=== PATIENT | female | born 1995 | race Caucasian/White ===

== ENCOUNTER 2018-03-05 19:05 | Emergency (ER) | payer MEDICAID, SELFPAY ==
[2018-03-05 19:06] VITALS: BP 137/100; PULSE 130; RESP 22; TEMP 37.1; O2SAT 97; BMI 43.2
[2018-03-05 19:39] LABS: Absolute Lymphocyte Count 1.68 X10^3/ul (0.83-4.51); Absolute Neutrophil Count 17.8 X10^3/uL (2.0-7.7); Bacteria 0 SEEN /hpf (None Seen); Basophil# 0.04 X10^3/uL; Basophil% 0.2 % (0-1); Eosinophil# 0.08 X10^3/uL; Eosinophils% 0.4 % (0-5); Hematocrit 37.7 % (37-47); Hemoglobin 12.4 g/dl (12.0-15.0); Lymphocyte # 1.68 X10^3/ul (4.0); Lymphocyte % 8.2 % (19-41); Mean Corp Hgb Conc 32.9 g/gl (32-36); Mean Corpuscular Hgb 24.2 pg (27.0-32.0); Mean Corpuscular Volume 73.5 fL (81-99); Mean Platelet Vol. 9.5 fl (6.2-12.0); Monocyte# 0.76 X10^3/uL; Monocyte% 3.7 % (0-10); Mucous, Urine 0 SEEN /hpf (<or=2+); Neutrophil # 17.76 X10^3/uL (2.7-7.7); Neutrophil % 87.1 % (47-70); Platelet Count 354 K/mm3 (150-450); RBC Distribution Width CV 15.6 % (11.6-14.6); RBC Distribution Width SD 41.1 fl (35.1-43.9); Red Blood Cells-Urine 0 SEEN /hpf (0-5); Red Blood Count 5.13 M/mm3 (4.2-5.4); White Blood Count 20.4 K/mm3 (4.4-11.0)
[2018-03-05 19:42] LABS: POSITIVE COUNT NO; POSITIVE DIFFERENTIAL NO; POSITIVE MORPHOLOGY NO
[2018-03-05 19:48] LABS: Color, Urine Yellow (Yellow); Glucose, Dipstick Normal (Normal); Ketone-Dipstick 50 mg/dl (Negative); Leukocyte Esterase-Dipstick 100 /ul (Negative); Nitrite-Dipstick Negative (Negative); Occult Blood-Urine Negative /ul (Negative); Protein-Dipstick Negative (Negative); Urine Bilirubin Dipstick Negative (Negative); Urine Clarity Clear (Clear); Urine Urobilinogen Normal (Normal)
[2018-03-05 19:58] LABS: Anion Gap 12 (5-15); BUN 11 mg/dL (7-18); BUN/Creat Ratio 12.8 RATIO (10-20); Calcium,Total 9.4 mg/dL (8.5-10.1); Chloride 102 mmol/L (98-107); Creatinine, Serum 0.86 mg/dL (0.55-1.02); EST Glomerular Filtration Rate 87 mL/min (>60); Est Glom Filt Rate - Afr Amer 105 mL/min (>60); Estimated Creatinine Clearance 91.55 ml/min; Glucose 108 mg/dL (74-106); Potassium 3.9 mmol/L (3.5-5.1); Sodium Level 135 mmol/L (136-145)
[2018-03-05 19:59] LABS: Squamous Epithelial Cells - UA 0-5 SEEN /hpf (5-10); White Blood Cells 0-5 SEEN /hpf (0-5)
[2018-03-05 20:15] VITALS: BP 142/73; PULSE 107; RESP 16; O2SAT 94
[2018-03-05 20:15] LABS: Pregnancy, Serum, hCG Quali. NEGATIVE Negative (0-9 Nonpreg)
[2018-03-05] MEDS: Ondansetron 4 MG/2 ML Vial IV (20:37)
--- NOTE | 2018-03-05 20:56 | ED.VISSUMM ---
- ER Visit Summary Date of Service: 03/05/18 Chief Complaint: Nausea and vomiting with fever, headache and abdominal pain. History of Present Illness: The patient is a 23 F past medical history of prior anemia and left lower quadrant hernia repair. States today she has had fever of [id number] with intermittent nausea and vomiting. No diarrhea. No dysuria. Mild cramping left lower quadrant intermittently. This is where she had a prior hernia repair. She has had a prior appendectomy. He denies other abdominal surgeries. Physical Examination: Young female no acute distress vital signs are stable afebrile. Temperature 98.8. Does not look septic or toxic. Does not look dehydrated. H EENT exam TMs normal. Posterior pharynx normal. Moist wheeze members. Neck nontender. No lymphadenopathy. No meningismus. Lungs clear to auscultation bilaterally. Heart regular rhythm rate about. Abdomen soft nondistended normal bowel sounds no peritoneal signs. Both the right upper right lower quadrants completely nontender. She is minimal tenderness in her prior left lower quadrant hernia repair site. This appears to be superficial. Nondistended. No signs of obstruction. Positive bowel sounds. She is moving all 4 extremities. The neurovascular intact. Back nontender. Skin no rashes. No petechiae or purpura. Neurologically she is awake alert with no focal motor deficits. Test Results: Patient's white count is elevated 20,000 however I think is from her nausea and vomiting. H&H 12 and 37. No bands. Electrolytes are unremarkable normal BUN, creatinine and gap. UA normal. Serum test negative. Emergency Department Course and Treatment: Patient treated with 1 L normal saline. IV Zofran. She will be reassessed. Clinically I think is a viral syndrome. I do not think she is acute abdomen. I also do not feel this is meningitis. Treatment Plan: Multiple repeat exams patient is doing well. At 2315 she feels fine. Her abdomen is completely nontender. There is no peritoneal signs. She feels comfortable being discharged home. Zofran home pack. Return if feeling worse. Disposition: Discharge Impression: Acute viral syndrome with nausea and vomiting. Abdominal pain This note was generated with [employer] dictation software. It may contain incorrect words, spelling, and punctuation that were not noted in review of the chart prior to signing ED Disposition - Plan for ED Patient: Chief Complaint: Abd Pain Referrals: Mahnaz Ramos, FAMILY AND CONSUMER SCIENCE PROFESSOR-C [Primary Care Provider] -
[2018-03-05] MEDS: Acetaminophen 500 MG Tablet 1000 MG PO (21:31)
[2018-03-05 22:07] VITALS: BP 115/72; PULSE 95; RESP 16; O2SAT 97
[2018-03-05 23:05] VITALS: BP 112/57; PULSE 88; RESP 16; O2SAT 97
--- NOTE | 2018-03-05 23:15 | ED.DEP ---
ED Disposition - Plan for ED Patient: Disposition: Home or Assisted Living Chief Complaint: Abd Pain Instructions: ED Viral Syndrome, ED Nausea Vomiting Prescriptions: Ondansetron [Zofran Odt] 4 mg PO Q4H PRN PRN #7 tab.rapdis PRN Reason: Nausea Referrals: Mahnaz Ramos, CABLE INSTALLATION MANAGER-C [Primary Care Provider] - 1-2 Days if not improving Additional Instructions: Plenty of fluids and rest. Zofran as needed for nausea.
--- NOTE | 2018-03-05 23:18 | DCINST.ED_ITS ---
ED Disposition - Plan for ED Patient: Disposition: Home or Assisted Living Chief Complaint: Abd Pain Instructions: ED Viral Syndrome, ED Nausea Vomiting Prescriptions: Ondansetron [Zofran Odt] 4 mg PO Q4H PRN PRN #7 tab.rapdis PRN Reason: Nausea Referrals: Mahnaz Ramos, OBSTETRICIAN GYNECOLOGIST-C [Primary Care Provider] - 1-2 Days if not improving Additional Instructions: Plenty of fluids and rest. Zofran as needed for nausea.
[2018-03-05] MEDS: Ondansetron ODT 4 MG Tablet PO (23:33)
[2018-03-05 23:36] VITALS: BP 112/57; PULSE 88; RESP 16; O2SAT 97
== END 2018-03-05 23:36 | disposition home or self-care (01) ==
PROVIDERS: Emergency Provider Emergency Medicine; Family Provider Nurse Practitioner Adult Health; PCP Nurse Practitioner Adult Health
DX: B34.9 Viral infection, unspecified (principal); R11.2 Nausea with vomiting, unspecified; R10.32 Left lower quadrant pain; R50.9 Fever, unspecified; D64.9 Anemia, unspecified; Z79.899 Other long term (current) drug therapy; Z87.891 Personal history of nicotine dependence
CPT/HCPCS: 36415; 80048; 81001; 84703; 85025; 96374; 99284; J7030; A4216; J2405

== ENCOUNTER → 2018-11-19 17:08 | Outpatient (CLI) | payer MEDICAID, SELFPAY ==
[2018-11-19 16:20] VITALS: BMI 43.2
[2018-11-19 18:05] LABS: Glucose Challenge Gest 1H 50g 132 mg/dL (70-140)
[2018-11-19 18:19] LABS: Absolute Lymphocyte Count 1.94 X10^3/ul (0.83-4.51); Basophil# 0.04 X10^3/uL; Basophil% 0.5 % (0-1); Eosinophil# 0.21 X10^3/uL; Eosinophils% 2.4 % (0-5); Hematocrit 33.9 % (37-47); Lymphocyte # 1.94 X10^3/ul (4.0); Lymphocyte % 22.4 % (19-41); Mean Corp Hgb Conc 32.4 g/gl (32-36); Mean Corpuscular Hgb 24.8 pg (27.0-32.0); Mean Corpuscular Volume 76.5 fL (81-99); Mean Platelet Vol. 9.8 fl (6.2-12.0); Monocyte# 0.45 X10^3/uL; Monocyte% 5.2 % (0-10); Neutrophil % 69.2 % (47-70); Platelet Count 286 K/mm3 (150-450); RBC Distribution Width CV 15.5 % (11.6-14.6); RBC Distribution Width SD 42.2 fl (35.1-43.9); Red Blood Count 4.43 M/mm3 (4.2-5.4); White Blood Count 8.7 K/mm3 (4.4-11.0)
[2018-11-19 18:23] LABS: POSITIVE COUNT NO; POSITIVE DIFFERENTIAL NO; POSITIVE MORPHOLOGY NO
[2018-11-19 18:57] LABS: HIV - WCH Non-Reactive (Nonreactive); Rubella IgG 251.1 IU/mL
[2018-11-19 22:12] LABS: Chlamydia Trachomatis by PCR Negative (Negative); Neisserai gonorrhoeae by PCR Negative (Negative); Probe Check PASS; Sample Adequacy Control PASS; Specimen Processing Control PASS
[2018-11-22 02:05] LABS: Rapid Plasmin Reagin (RPR) NONREACTIVE (NONREACTIVE)
[2018-11-22 10:03] LABS: HEPATITIS B SURFACE AG Negative (Negative)
== END ==
PROVIDERS: Family Provider Nurse Practitioner Adult Health; PCP Nurse Practitioner Adult Health; Referring Provider Obstetrics & Gynecology; Visit Provider Obstetrics & Gynecology
DX: Z34.90 Encounter for supervision of normal pregnancy, unspecified, unspecified trimester (principal)
CPT/HCPCS: 36415; 82950; 85025; 86592; 86703; 86762; 86850; 86900; 87086; 87088; 87340; 87491; 87591

== ENCOUNTER 2019-01-06 15:18 | Emergency (ER) | payer MEDICAID, SELFPAY ==
[2018-12-20 15:34] VITALS: BMI 43.2
[2019-01-06 15:19] VITALS: BP 163/97; PULSE 112; RESP 18; TEMP 37.3; O2SAT 97; BMI 40.1
--- NOTE | 2019-01-06 15:28 | ED.RN ---
PT REPORTS CHEST TIGHTNESS AND NAUSEA. CALLED FOR EKG. WILL CONTINUE TO MONITOR.
--- NOTE | 2019-01-06 15:30 | EKG12_ITS ---
Test Reason : CHEST HEAVINESS Blood Pressure : / mmHG Vent. Rate : 108 BPM Atrial Rate : 108 BPM P-R Int : 114 ms QRS Dur : 092 ms QT Int : 350 ms P-R-T Axes : 053 054 014 degrees QTc Int : 469 ms Sinus tachycardia Otherwise normal ECG Confirmed by KEENAN BENAVIDEZ, ANKUR ([id number]), brands editor ZEHRA COHEN ([id number]) on 01/07/2019 1:43:22 PM Referred By: ABEBA/BLAISE Confirmed By:ANKUR HUSSEIN MD
--- NOTE | 2019-01-06 15:55 | ED.DCSUM_ITS ---
History of Present Illness Chief Complaint: Shortness of Breath Informant: Patient Onset: Today Timing: Continuous Quality: Wheezing Current Severity: Mild Maximum Severity: Moderate Narrative: Patient presenting for evaluation secondary to shortness of breath. Patient has an underlying history of asthma. She is also 14 weeks . She is G1, P0. Patient reports that today she started to have some issues with shortness of breath. She was very concerned about using her inhaler as her CLOTH NEUTRALIZER said she should not use it more than twice a week. She reports that she has chest tightness and shortness of breath. She does endorse a mild nonproductive cough, no fevers. Patient reports that she felt so anxious that she vomited a couple of times. She denies any pelvic cramping vaginal bleeding or discharge. Patient called her primary care office and they recommended that she come to the emergency department. Past Medical History - Allergies and Home Meds Allergies/Adverse Reactions: Allergies [place] And Derivatives Allergy (Verified 01/06/19 15:19) Swelling morphine Allergy (Verified 01/06/19 15:19) Other Primary Care Physician: Mahnaz Ramos NP-C [Primary Care Provider] - Smoking Status: Never smoker Review of Systems All systems negative except as indicated General: Denies: Fever Cardiovascular: Reports: Chest pain Respiratory: Reports: Dyspnea Gastrointestinal: Reports: Nausea, Vomiting Psych: Reports: Anxiety Physical Exam Vital Signs/Narrative: Vital Signs Temp Pulse Resp BP Pulse Ox 01/06/19 15:19 99.2 F H 112 H 18 163/97 H 97 General: Well nourished, Well developed, - - Patient is anxious and tearful Head: Normocephalic, Atraumatic Eyes: Perrl, EOMI ENT: Moist mucous membranes, No rhinorrhea Neck: Supple, Nontender Cardiovascular: Regular rhythm, Tachycardia, - - 2+ radial pulses bilaterally symmetric Respiratory: Wheezing - Minimal diffuse without evidence of respiratory distress retractions or accessory muscle use Abdomen: Soft, Nontender, Nondistended, Normal bowel sounds Back: Nontender, Normal Inspection Extremities: Nontender, No edema Skin: Normal color, No rash Neurological: Alert, Oriented x3, Cranial nerves II-XII grossly intact, Normal Strength, Normal Sensation Psychological: Normal affect, Normal Mood Diagnostic/Tx/Re-eval - EKG Initial EKG Interpretation: - - Sinus tachycardia with a rate of 108. Isoelectric ST segments. Isolated T wave inversion in lead III, no evidence of S1, q3, T3 morphology. No evidence of right ventricular strain. - Medical Decision Making Patient presented secondary to shortness of breath. Physical exam does show some evidence of obstructive lung disease with wheezing. Patient was given a breathing treatment in the emergency department had significant subsequent improvement. Patient's initial EKG did show mild amount of tachycardia but the patient was significantly anxious and tearful at that time, and my repeat evaluation even after the patient having a beta-rosamaria shows a normal sinus rhythm with no tachycardia. Patient has no signs or symptoms consistent with pulmonary embolus I do not believe the work-up is indicated. Patient was given a dose of Kenalog in the emergency department to help with pulmonary inflammation. Patient was recommended that she can use her inhaler every 4-6 hours as needed. Patient was comforted by this, and was discharged in improved condition. Disposition: Home ED Disposition - Plan for ED Patient: Disposition: Home or Assisted Living Diagnosis: Asthma exacerbation Instructions: ASTHMA, Acute (Adult) Referrals: Mahnaz Ramos NP-C [Primary Care Provider] - 5-7 Days
[2019-01-06] MEDS: Albuterol 2.5 MG/3 ML VIAL.NEB. INHALATION (15:58)
[2019-01-06 15:59] VITALS: PULSE 95; RESP 18; O2SAT 98
[2019-01-06] MEDS: Triamcinolone Acetonide 40 MG/ML Vial IM (16:08)
[2019-01-06 16:11] VITALS: RESP 18; O2SAT 99
[2019-01-06 16:33] VITALS: BP 113/61; PULSE 99; RESP 18; O2SAT 100
--- NOTE | 2019-01-06 16:34 | ED.RN ---
REVIEWED D/C INSTRUCTIONS, FOLLOW UP CARE, AND S/S THAT WOULD WARRANT A RETURN TO THE ED WITH PT. PT VERBALIZED AN UNDERSTANDING AND DENIES FURTHER QUESTIONS FOR THIS RN. PT SKIN P/W/D, RESP EVEN AND UNLABORED, PT A&O X 3, NO DISTRESS NOTED. PT AMBULATED OUT OF ED, GAIT STEADY.
== END 2019-01-06 16:35 | disposition home or self-care (01) ==
LOC: ED 16:17
PROVIDERS: Emergency Provider Emergency Medicine; Family Provider Nurse Practitioner Adult Health; PCP Nurse Practitioner Adult Health
DX: O99.512 Diseases of the respiratory system complicating pregnancy, second trimester (principal); J45.901 Unspecified asthma with (acute) exacerbation; Z3A.14 14 weeks gestation of pregnancy
CPT/HCPCS: 93005; 94640; 94760; 96372; 99282

== ENCOUNTER → 2019-04-16 16:33 | Outpatient (CLI) | payer MEDICAID, SELFPAY ==
[2019-04-16 16:05] VITALS: BMI 40.1
[2019-04-16 17:10] LABS: Absolute Lymphocyte Count 1.89 X10^3/uL (0.83-4.51); Absolute Neutrophil Count 6.3 X10^3/uL (2.0-7.7); Basophil# 0.02 X10^3/uL; Basophil% 0.2 % (0-1); Eosinophil# 0.19 X10^3/uL; Eosinophils% 2.1 % (0-5); Hematocrit 29.3 % (37-47); Hemoglobin 9.5 g/dL (12.0-15.0); Lymphocyte # 1.89 X10^3/ul (4.0); Lymphocyte % 21.2 % (19-41); Mean Corp Hgb Conc 32.4 g/dL (32-36); Mean Corpuscular Hgb 26.5 pg (27.0-32.0); Mean Corpuscular Volume 81.8 fL (81-99); Mean Platelet Vol. 9.5 fl (6.2-12.0); Monocyte% 5.6 % (0-10); NRBC Flagged by Analyzer 0 % (0-5); Neutrophil # 6.28 X10^3/uL (2.7-7.7); Neutrophil % 70.3 % (47-70); Platelet Count 220 K/mm3 (150-450); RBC Distribution Width CV 14.6 % (11.6-14.6); RBC Distribution Width SD 43.5 fl (35.1-43.9); Red Blood Count 3.58 M/mm3 (4.2-5.4); White Blood Count 8.9 K/mm3 (4.4-11.0)
[2019-04-16 18:05] LABS: Glucose Challenge Gest 1H 50g 97 mg/dL (70-140)
== END ==
PROVIDERS: Family Provider Nurse Practitioner Adult Health; PCP Nurse Practitioner Adult Health; Referring Provider Nurse Practitioner Women's Health; Visit Provider Nurse Practitioner Women's Health
DX: O09.91 Supervision of high risk pregnancy, unspecified, first trimester (principal); Z3A.00 Weeks of gestation of pregnancy not specified
CPT/HCPCS: 36415; 82950; 85025

== ENCOUNTER → 2019-04-28 | Outpatient (CLI) | payer MEDICAID, SELFPAY ==
[2019-04-16 16:05] VITALS: BMI 40.1
[2019-04-28 14:24] VITALS: BP 139/79; PULSE 85; RESP 16; TEMP 36.8; BMI 41.5
== END | disposition home or self-care (01) ==
PROVIDERS: Family Provider Nurse Practitioner Adult Health; PCP Nurse Practitioner Adult Health; Referring Provider Obstetrics & Gynecology; Visit Provider Obstetrics & Gynecology
DX: O99.019 Anemia complicating pregnancy, unspecified trimester (principal); D64.9 Anemia, unspecified; Z3A.00 Weeks of gestation of pregnancy not specified
CPT/HCPCS: 96365; 96366; J1756; J7050; A4216

== ENCOUNTER → 2019-05-06 11:24 | Outpatient (CLI) | payer MEDICAID, SELFPAY ==
[2019-04-28 14:24] VITALS: BMI 41.5
[2019-05-02 16:39] VITALS: BMI 41.5
[2019-05-06 11:39] VITALS: BP 114/66; PULSE 93; RESP 16; O2SAT 100; BMI 42.3
== END ==
PROVIDERS: Family Provider Nurse Practitioner Adult Health; PCP Nurse Practitioner Adult Health; Referring Provider Obstetrics & Gynecology; Visit Provider Obstetrics & Gynecology
DX: O99.019 Anemia complicating pregnancy, unspecified trimester (principal); Z3A.00 Weeks of gestation of pregnancy not specified
CPT/HCPCS: 96365; 96366; J1756; J7050; A4216

== ENCOUNTER → 2019-05-12 12:26 | Outpatient (CLI) | payer MEDICAID, SELFPAY ==
[2019-04-28 14:24] VITALS: BMI 41.5
[2019-05-06 11:39] VITALS: BMI 42.3
[2019-05-12 12:58] VITALS: BP 136/78; PULSE 94; RESP 16; TEMP 36.4; O2SAT 96; BMI 41.9
[2019-05-12 14:56] VITALS: BP 124/66; PULSE 91; RESP 18; TEMP 36.4; O2SAT 99
== END ==
PROVIDERS: Family Provider Nurse Practitioner Adult Health; PCP Nurse Practitioner Adult Health; Referring Provider Obstetrics & Gynecology; Visit Provider Obstetrics & Gynecology
DX: O99.019 Anemia complicating pregnancy, unspecified trimester (principal); Z3A.00 Weeks of gestation of pregnancy not specified
CPT/HCPCS: 96365; 96366; J1756; J7050; A4216

== ENCOUNTER 2019-06-05 16:25 | Outpatient (CLI) | payer MEDICAID, SELFPAY ==
[2019-06-05 09:12] VITALS: BMI 41.9
[2019-06-05 17:08] VITALS: BMI 43.6
[2019-06-05 17:59] LABS: ROM Internal Control Test YES-OK TO RESULT pt. (Internal QC); ROM Patient Test Negative (Negative)
--- NOTE | 2019-06-07 03:42 | OB.TRI.PN ---
Progress Notes Date of Service: 06/05/19 Progress Note: false labor dc home FHT: 140 Moderate variability reactive no decelerations category I tracing [employer]: no regular Contractions Laboratory Studies: Laboratory Tests 06/05/19 Range/Units 17:10 Vag Amniotic Fld Detect Negative (Negative) - Problem List (1) False labor Status: Acute Multi Select Codes - Urinary/Genital Urinary/Genital CPT Codes: 07179-56 non-stress test Interp
== END 2019-06-05 18:15 | disposition home or self-care (01) ==
LOC: WPOUT 16:37 → WP 16:38
PROVIDERS: Family Provider Nurse Practitioner Adult Health; PCP Nurse Practitioner Adult Health; Referring Provider Obstetrics & Gynecology; Visit Provider Obstetrics & Gynecology
DX: O47.9 False labor, unspecified (principal); Z3A.00 Weeks of gestation of pregnancy not specified
CPT/HCPCS: 59025; 59050; 84112; 99218; G0378

== ENCOUNTER → 2019-06-16 12:21 | Outpatient (CLI) | payer MEDICAID, SELFPAY ==
[2019-06-05 17:08] VITALS: BMI 43.6
--- NOTE | 2019-06-16 12:22 | US_ITS ---
STUDY: SECOND AND THIRD TRIMESTER OBSTETRICAL ULTRASOUND REASON FOR EXAM: Female, 24 years old . growth. LMP: September 29, 2018. TECHNIQUE: Transabdominal TECHNICAL QUALITY: Adequate. PRIOR ULTRASOUND: None. FINDINGS: There is a single intrauterine fetus. The fetus is in a cephalic presentation. There is demonstrated cardiac activity with a heart rate of 125 bpm. There is a normal amniotic fluid volume. The largest amniotic fluid pocket measures 5.3 cm. The amniotic fluid index (LANG) is 14.9 cm. The placenta is fundal in location. There are Grade 1 placental changes. The cervix was not measured at this time due to the head position. The bilateral adnexal regions are normal. BIOMETRY: BPD: 9.4 cm: 38 weeks, 2 days HC: 33.7 cm: 38 weeks, 4 days AC: 34.6 cm: 38 weeks, 3 days FL: 7.1 cm: 36 weeks, 1 days CI: 82.4% FL/BPD: 75% FL/HC: FL/AC: 20.4% HC/AC: 0.97 age by current US: 38 weeks, 0 days. GEMA by current US: June 30, 2019. Estimated weight: 3365 grams, +/- 498 grams, 75 %. Age by LMP: 37 weeks, 1 days. GEMA by LMP: July 06, 2019. US/OB Limited With Biometrics IMPRESSION: Single live intrauterine gestation with mean gestational age of 38 weeks. Electronically Signed: Quinton Dunn, at 13:41 EST , Service support ,
== END ==
PROVIDERS: Family Provider Nurse Practitioner Adult Health; PCP Nurse Practitioner Adult Health; Referring Provider Obstetrics & Gynecology; Visit Provider Obstetrics & Gynecology
DX: O99.019 Anemia complicating pregnancy, unspecified trimester (principal); O99.210 Obesity complicating pregnancy, unspecified trimester; Z3A.00 Weeks of gestation of pregnancy not specified
CPT/HCPCS: 76816

== ENCOUNTER → 2019-06-23 17:16 | Outpatient (CLI) | payer MEDICAID, SELFPAY ==
[2019-06-23 15:58] VITALS: BMI 43.6
== END ==
PROVIDERS: Family Provider Nurse Practitioner Adult Health; PCP Nurse Practitioner Adult Health; Referring Provider Nurse Practitioner Women's Health; Visit Provider Nurse Practitioner Women's Health
DX: Z34.93 Encounter for supervision of normal pregnancy, unspecified, third trimester (principal); Z3A.38 38 weeks gestation of pregnancy
CPT/HCPCS: 87081

== ENCOUNTER 2019-07-04 21:59 | Inpatient (IN) | payer MEDICAID, SELFPAY ==
[2019-07-01 12:08] VITALS: BMI 43.6
[2019-07-04 22:15] VITALS: BMI 45.3
[2019-07-04] MEDS: Lactated Ringers 1,000 ML 50 ML IV (22:55)
[2019-07-04 23:24] LABS: Absolute Lymphocyte Count 2.06 X10^3/uL (0.83-4.51); Absolute Neutrophil Count 7.3 X10^3/uL (2.0-7.7); Basophil# 0.03 X10^3/uL; Basophil% 0.3 % (0-1); Eosinophil# 0.16 X10^3/uL; Eosinophils% 1.6 % (0-5); Hematocrit 32.9 % (37-47); Hemoglobin 10.8 g/dL (12.0-15.0); Lymphocyte # 2.06 X10^3/ul (4.0); Lymphocyte % 20.4 % (19-41); Mean Corp Hgb Conc 32.8 g/dL (32-36); Mean Corpuscular Hgb 27.1 pg (27.0-32.0); Mean Corpuscular Volume 82.7 fL (81-99); Mean Platelet Vol. 9.8 fl (6.2-12.0); Monocyte# 0.56 X10^3/uL; Monocyte% 5.5 % (0-10); NRBC Flagged by Analyzer 0 % (0-5); Neutrophil # 7.25 X10^3/uL (2.7-7.7); Neutrophil % 71.8 % (47-70); Platelet Count 236 K/mm3 (150-450); RBC Distribution Width CV 15.2 % (11.6-14.6); RBC Distribution Width SD 46.2 fl (35.1-43.9); Red Blood Count 3.98 M/mm3 (4.2-5.4); White Blood Count 10.1 K/mm3 (4.4-11.0)
[2019-07-04] MEDS: Oxytocin 30 units/NS 500 ml 30 UNITS/500 ML IV.SOLN IV (23:33)
--- NOTE | 2019-07-05 01:58 | HP.PCM_ITS ---
- Problem List (1) Anemia affecting Status: Acute Qualifiers: (2) Asthma affecting , antepartum Status: Acute Comment: albuterol PRN moderate intermittent needs visit with PCP (3) Obesity affecting Status: Acute Qualifiers: Comment: bmi 43, 1 tm glucola, healthy weight gain discussed, plan growth us q 4 weeks and weekly nsts after 32 (4) Status: Acute Qualifiers: Comment: carrier genetic and ntd screening declined. Anatomy US normal (5) Supervision of high-risk Status: Acute Qualifiers: Comment: PRR GEMA 07/06/19 [place] History Date of Admission: 07/05/19 Final GEMA: 07/06/19 Gestational age: 39 Weeks and 6 Days History of this : This is a 24 year-old, at 39 weeks gestational age presents with SROM. she denies any regular ctx and admits good FM. she has had a complicated by obesity but otherwise no issues. Surgical History: Surgical History (Last Reviewed 07/01/19 @ 11:56 by Mervat Bolaños) H/O hernia repair Z98.890, Z87.19 06/2017 History of appendectomy Z90.49 Allergies [place] And Derivatives Allergy (Verified 07/04/19 23:57) Swelling morphine Allergy (Verified 07/04/19 23:57) Other Home Medications: Home Medications Albuterol Inhaler [Ventolin Hfa] 1 - 2 puff INHALATION Q4H PRN PRN #1 inhaler 12/15/13 Ferrous Fumarate 324 mg PO DAILY 03/05/18 vitamin#30 30 mg iron-10 mg iron-folic acid 1 mg-omg3 capsule 1 cap PO DAILY cap 11/19/18 Smoking Status: Former smoker Alcohol: None Number of Fetus(es): 1 NST - FHR Rate Baby A Baseline: 140 Variability:: Moderate Accelerations:: 15 x 15 Decelerations:: None NST Reactive:: Yes FHR Category:: Category I Uterine Activity:: irregular History Past Pregnancies: Past Pregnancies Delivery Date Name GA/ Weeks Outcome Route Wt Sex Labor Length Anesthesia Delivery Location Provider FOB Labs: Mom's Labs & Results 07/04/19 07/04/19 22:55 22:55 WBC 10.1 RBC 3.98 L Hgb 10.8 L Hct 32.9 L MCV 82.7 MCH 27.1 MCHC 32.8 RDW Std Deviation 46.2 H RDW Coeff of Wanda 15.2 H Plt Count 236 MPV 9.8 Immature Gran % (Auto) 0.400 Neut % (Auto) 71.8 H Lymph % (Auto) 20.4 [place] % (Auto) 5.5 Eos % (Auto) 1.6 Baso % (Auto) 0.3 Absolute Neuts (auto) 7.3 Absolute Lymphs (auto) 2.06 Nucleated RBC % 0 Blood Type B POSITIVE Antibody Screen NEGATIVE Course Did the patient receive Yes care? Labs Blood Type: B RH: POSITIVE RPR/VDRL/Syphilis Nonreactive Rubella status Immune HbSAg Negative HIV/AIDS Non-Reactive Current Obstetrical History Gestational Diabetes No Incompetent Cervix No Infertility No IUGR No Macrosomia No Hypertension/Pre-eclampsia No Placenta Previa/Abruption No PTL/PROM No Uterine anomaly No Oligohydramnios No Polyhydramnios No Multiple gestation No Past Medical History Asthma Yes: uses inhaler Diabetes No Hypertension No Heart disease No Mitral valve prolapse No Neurologic/Seizure disorder/ No Migraines Kidney disease No Liver disease No Varicosities No Clotting disorders/Hx of DVT No Thyroid Dysfunction No Other medical diseases Yes: anemia-had iron tranfusions Psychiatric disorders No Major trauma No Abnormal PAP smear No Sleep apnea No Mammogram in the last 2 years Yes: [id number] breasts Social History Marital Status: Alleged father Pipo Alfredo Hx Smoking No Smoking Status Former smoker How long have you used pt denies substances (years)? Expected Infant Delivery Method: Spontaneous Vaginal Review of Systems Constitutional: Denies: Fever, Malaise Eyes: Denies: Blurred vision, Vision Change HEENT: Denies: Head Aches, Visual Changes Cardiovascular: Denies: Chest Pain, Palpitations Respiratory: Denies: Cough, Shortness of Breath, Wheezing Gastrointestinal: Denies: Abdominal Pain, Diarrhea, Nausea, Vomiting Genitourinary: Denies: Dysuria, Hematuria Musculoskeletal: Denies: Joint Pain, Muscle pain Skin: Denies: Lesions, Rash Neurological: Denies: Blurred vision, Focal weakness, Headaches Psychiatric: Denies: Anxiety, Depression Endocrine: Denies: Heat/ Cold Intolerance Hematologic/ Lymphatic: Denies: Easy Bruising, Easy Bleeding Physical Exam General: Alert, Cooperative, No apparent distress HEENT: Atraumatic, Normocephalic. Negative for: Thyromegaly, Lymphadenopathy Cardiovascular: Regular rate Lungs: Normal air movement Abdomen: Soft, Non Tender, Gravid Neurological: Deep Tendon Reflexes 2+/4 and Symmetrical, Neuro grossly intact. Negative for: Clonus RESTAURANT KITCHEN AND SERVICE MANAGER: Normal external genitalia. Negative for: Vulvar lesions Estimated gestational size: Appropriate for gestational size Presentation: Cephalic Cervix Dilation (cm): 2.5 Station: -2 Effacement (%): 70 Assessment/Plan All Active Problems (Last Reviewed 07/01/19 @ 11:56 by Mervat Bolaños) False labor (Acute) Anemia affecting (Acute) Asthma affecting , antepartum (Acute) Obesity affecting (Acute) (Acute) Supervision of high-risk (Acute) This is a 24 year-old, , at 39 weeks gestational age presents with PROM Patient presents IOL, plan management for , pitocin per protocol for PROM Pain management: Plans epidural. GBS negative. Management of any complications: None I have reviewed the [facility] and made any clinically relevant updates.
[2019-07-05] MEDS: Lactated Ringers 500 ML 999 ML IV ×2 (03:56→21:06)
[2019-07-05] MEDS: fentaNYL-bupivacaine (epidural) 100 ML BAG EPIDURAL ×4 (04:50→23:11)
[2019-07-05] MEDS: 0.9% Saline Lock 10 ML Syringe IV (06:10)
[2019-07-05] MEDS: Ondansetron 4 MG/2 ML Vial IV ×3 (06:13→18:23)
--- NOTE | 2019-07-05 07:43 | PN_ITS ---
Progress Note doing well laboring well, pain controlled with epidural. FHT: 130 Moderate variability reactive no decelerations category I tracing [place]: regular Contractions IUPC replaced. pit incrased. /-2 exp management
[2019-07-05] MEDS: Lactated Ringers 1,000 ML 200 ML IV ×2 (09:26→18:29)
[2019-07-05] MEDS: proCHLORPERazine 10 MG/2 ML Vial IV (21:54)
--- NOTE | 2019-07-06 01:25 | PCM.OPRPT ---
Problem List (1) Anemia affecting Status: Acute Qualifiers: (2) Asthma affecting , antepartum Status: Acute Comment: albuterol PRN moderate intermittent needs visit with PCP (3) Obesity affecting Status: Acute Qualifiers: Comment: bmi 43, 1 tm glucola, healthy weight gain discussed, plan growth us q 4 weeks and weekly nsts after 32 (4) Status: Acute Qualifiers: Comment: carrier genetic and ntd screening declined. Anatomy US normal (5) Supervision of high-risk Status: Acute Qualifiers: Comment: PRR GEMA 07/06/19 [place] Vaginal Delivery Maternal Presentation: Active Labor, Spontaneous Rupture of Membranes Method of Induction: Pitocin Medical Reason for Induction: Premature Rupture of Membranes Amniotic Membrane Rupture Type: Spontaneous at home Amniotic Fluid Description: Clear Final GEMA: 07/06/19 Gestational age: 40 Weeks and 0 Days Date of Procedure: 07/06/19 Pre-Operative Diagnosis: prom Post-Operative Diagnosis: same Surgery/ Procedure Performed: Spontaneous Vaginal Delivery Type of Anesthesia: Epidural Description of Procedure: Patient began pushing and delivered the head in the [ROLAND] presentation. The head was delivered atraumatically. The anterior and posterior shoulders delivered without complication followed by the rest of the and the infant was placed on the maternal abdomen. Delayed cord clamping was employed for approximately 60 seconds. Cord was clamped and cut and gentle traction was applied to the cord and the placenta delivered spontaneously immediately following it was noted to be intact with three-vessel cord. The perineum and vagina were inspected and noted to have a second-degree perineal laceration that was repaired in the usual fashion with 3-0 Vicryl Rapide. EBL was 400 cc. Patient and infant tolerated delivery well. Placental Delivery Description: Spontaneous Placenta Disposition: [facility] Cord Vessel Description: 3 Vessels Drain: [place] to straight drain Infant A gender: Male Episiotomy Description: None Laceration: Perineal Extension/lac, 2nd degree Medications given after delivery: IV Pitocin Complications: None Multi Select Codes - Urinary/Genital Urinary/Genital CPT Codes: 57746 Vaginal Delivery [facility]
[2019-07-06] MEDS: Lactated Ringers 1,000 ML 200 ML IV (01:33)
[2019-07-06] MEDS: Oxytocin 30 units/NS 500 ml 30 UNITS/500 ML IV.SOLN 334 UNITS IV (02:43)
[2019-07-06 08:00] VITALS: BP 117/68; PULSE 107; RESP 16; TEMP 36.5; O2SAT 96
--- NOTE | 2019-07-06 08:21 | NURSING ---
This RN took epidural cath out. Blue tip intact.
[2019-07-06] MEDS: Acetaminophen 500 MG Tablet 1000 MG PO (11:01)
[2019-07-06] MEDS: Prenatal Vits Tablet 1 TABLET PO (11:02)
[2019-07-06] MEDS: Ferrous Sulfate 325 MG Tablet PO (11:02)
[2019-07-06] MEDS: Senna/Docusate Sodium 1 Tablet PO (11:06)
[2019-07-06 12:30] VITALS: BP 138/66; PULSE 98; RESP 16; TEMP 36.4
[2019-07-06 16:00] VITALS: BP 121/62; PULSE 92; RESP 18; TEMP 36.8
[2019-07-06] MEDS: Naproxen 250 MG Tablet 500 MG PO (18:00)
[2019-07-06 20:01] VITALS: BP 132/63; PULSE 101; RESP 16; TEMP 36.6
[2019-07-06 23:59] VITALS: BP 113/65; PULSE 97; RESP 16; TEMP 37.2
[2019-07-07 03:28] VITALS: BP 129/56; PULSE 91; RESP 16; TEMP 36.9
--- NOTE | 2019-07-07 07:55 | PCM.PN.OB ---
Subjective: doing well no complaints pain controlled no CP SOB N V ambulating well tolerating po lochia moderate, going well - Physical Exam Vitals/I&O's: Vital Signs Temp Pulse Resp BP Pulse Ox 98.4 F 91 16 129/56 H 96 07/07/19 03:28 07/07/19 03:28 07/07/19 03:28 07/07/19 03:28 07/06/19 08:00 Oxygen Delivery Method Room Air Weight: 272 lb 14.916 oz Body Mass Index (BMI) 45.3 Intake and Output for Last 24 Hours 07/05/19 07/06/19 07/07/19 23:59 23:59 23:59 Intake Total 3940.26 / 3940.26 1257.16 / 1257.16 Output Total 2250 / 2250 700 / 700 Balance 1690.26 / 1690.26 557.16 / 557.16 General: Alert, Oriented x3 Abdomen: Non Tender, Non-Distended, - - FF below U Current Medications Acetaminophen (Tylenol) 1,000 mg PO Q8H PRN PRN PRN Reason: Pain Score 1-3/10 Last Admin: 07/06/19 11:01 Dose: 1,000 mg Documented by: Albuterol Sulfate (Ventolin Aerosols) 2.5 mg INHALATION Q4H PRN PRN Bisacodyl (Dulcolax) 10 mg RECTAL UD PRN PRN Reason: If no BM Dibucaine (Dibucaine) 1 applic TOPICAL TID PRN PRN; Protocol PRN Reason: Discomfort Ferrous Sulfate (Ferrous Sulfate) 325 mg PO DAILYCM [facility] Last Admin: 07/06/19 11:02 Dose: 325 mg Documented by: Hydrocortisone (Hytone) 1 applic TOPICAL TID PRN PRN; Protocol PRN Reason: Discomfort Methylergonovine Maleate (Methergine) 0.2 mg IM X1 PRN PRN Reason: Excess bleeding/uterine atony Naproxen (Naprosyn) 500 mg PO Q8H PRN PRN PRN Reason: Pain Score 1-3/10 Last Admin: 07/06/19 18:00 Dose: 500 mg Documented by: Ondansetron HCl (Zofran) 4 mg IV Q4H PRN PRN PRN Reason: Nausea Oxycodone HCl (Oxyir) 5 - 10 mg PO Q4H PRN PRN PRN Reason: Pain Score 4-10/10 Multivit/Folic Acid/Iron (Prenatabs Fa) 1 tablet PO DAILY@1200 EDD Last Admin: 07/06/19 11:02 Dose: 1 tablet Documented by: Senna/Docusate Sodium (Senokot-S, Felipa-Colace) 1 - 2 tablet PO DAILY PRN PRN PRN Reason: Constipation Last Admin: 07/06/19 11:06 Dose: 2 tablet Documented by: Simethicone (Mylicon) 80 mg PO PCHS PRN PRN Reason: Indigestion/Stomach pain Sodium Chloride () 5 - 15 ml IV UD PRN PRN Reason: SALINE FLUSH Medical Necessity - Tobacco Use Smoking Status: Former smoker Assessment/Plan All Active Problems (Last Reviewed 07/01/19 @ 11:56 by Mervat Bolaños) False labor (Acute) Anemia affecting (Acute) Asthma affecting , antepartum (Acute) Obesity affecting (Acute) (Acute) Supervision of high-risk (Acute) s/p PPD # 1 1. routine post delivery care 2. breast feeding- support given 3. rh positive 4. rubella immune 5. home today
--- NOTE | 2019-07-07 07:56 | DCINST_ITS ---
Additional Instructions: If you experience any of the following, contact your healthcare provider. * Bleeding that soaks a pad every hour for 2 hours * Fever 100.4 or higher * Unrelieved incision or abdominal pain * Swelling, redness, discharge or bleeding from your incision or episiotomy site * Your incision begins to separate * Problems urinating (including inability to urinate or burning while urinating). * Visual changes * Severe headache * Flu-like symptoms * Pain or redness in one of both of your breasts * Pain, warmth, tenderness or swelling in your legs, especially the calf area * Frequent nausea and vomiting * Symptoms of depression or anxiety If you experience any of the following, call 911 or go to the nearest Emergency Room. * Chest pain * Problems breathing * Seizure activity * Partial or complete paralysis of a body part, slurred speech, weakness or drooping of the face, or a sudden inability to walk or hold your balance Allergies/Adverse Reactions: Allergies [place] And Derivatives Allergy (Verified 07/04/19 23:57) Swelling morphine Allergy (Verified 07/04/19 23:57) Other Medications to take at Discharge Albuterol Inhaler [Ventolin Hfa] 1 - 2 puff INHALATION Q4H PRN PRN #1 inhaler 12/15/13 Ferrous Fumarate 324 mg PO DAILY 03/05/18 vitamin#30 30 mg iron-10 mg iron-folic acid 1 mg-omg3 capsule 1 cap PO DAILY cap 11/19/18 Primary Care Physician: Mahnaz Ramos NP-C [Primary Care Provider] - Test Results: Test results from this visit will be discussed in further detail at your follow- up appointment, if applicable.
--- NOTE | 2019-07-07 07:56 | PCM.DCVAG ---
Additional Instructions: If you experience any of the following, contact your healthcare provider. Bleeding that soaks a pad every hour for 2 hours Fever 100.4 or higher Unrelieved incision or abdominal pain Swelling, redness, discharge or bleeding from your incision or episiotomy site Your incision begins to separate Problems urinating (including inability to urinate or burning while urinating). Visual changes Severe headache Flu-like symptoms Pain or redness in one of both of your breasts Pain, warmth, tenderness or swelling in your legs, especially the calf area Frequent nausea and vomiting Symptoms of depression or anxiety If you experience any of the following, call 911 or go to the nearest Emergency Room. Chest pain Problems breathing Seizure activity Partial or complete paralysis of a body part, slurred speech, weakness or drooping of the face, or a sudden inability to walk or hold your balance Allergies/Adverse Reactions: Allergies [place] And Derivatives Allergy (Verified 07/04/19 23:57) Swelling morphine Allergy (Verified 07/04/19 23:57) Other Medications to take at Discharge Albuterol Inhaler [Ventolin Hfa] 1 - 2 puff INHALATION Q4H PRN PRN #1 inhaler 12/15/13 Ferrous Fumarate 324 mg PO DAILY 03/05/18 vitamin#30 30 mg iron-10 mg iron-folic acid 1 mg-omg3 capsule 1 cap PO DAILY cap 11/19/18 Primary Care Physician: Mahnaz Ramos NP-C [Primary Care Provider] - Test Results: Test results from this visit will be discussed in further detail at your follow-up appointment, if applicable.
[2019-07-07] MEDS: Prenatal Vits Tablet 1 TABLET PO (08:02)
[2019-07-07] MEDS: Ferrous Sulfate 325 MG Tablet PO (08:02)
[2019-07-07 08:29] VITALS: BP 120/57; PULSE 90; RESP 16; TEMP 36.8
[2019-07-07] MEDS: Naproxen 250 MG Tablet 500 MG PO (11:20)
[2019-07-07 14:00] VITALS: BP 107/53; PULSE 85; RESP 16; TEMP 36.8
== END 2019-07-07 18:00 | disposition home or self-care (01) | DRG 560 ==
PROVIDERS: Admitting Provider Obstetrics & Gynecology; Family Provider Nurse Practitioner Adult Health; PCP Nurse Practitioner Adult Health; Visit Provider Obstetrics & Gynecology
DX: O42.02 Full-term premature rupture of membranes, onset of labor within 24 hours of rupture (principal); O70.1 Second degree perineal laceration during delivery; O99.214 Obesity complicating childbirth; E66.9 Obesity, unspecified; O99.02 Anemia complicating childbirth; D64.9 Anemia, unspecified; O99.52 Diseases of the respiratory system complicating childbirth; Z3A.39 39 weeks gestation of pregnancy; Z37.0 Single live birth; J45.909 Unspecified asthma, uncomplicated
CPT/HCPCS: 59025; 59050; 85025; 86850; 86900; 86901; 99218; J7120; A4216; G0378; J2405

== ENCOUNTER → 2019-08-19 15:49 | Outpatient (CLI) | payer MEDICAID, SELFPAY ==
[2019-08-19 14:04] VITALS: BMI 45.3
[2019-08-22 12:04] LABS: HPV Reflexed? NOT INDICATED
== END ==
PROVIDERS: PCP Nurse Practitioner Adult Health; Referring Provider Nurse Practitioner Women's Health; Visit Provider Nurse Practitioner Women's Health
DX: Z12.4 Encounter for screening for malignant neoplasm of cervix (principal)
CPT/HCPCS: 88175; G0145

== ENCOUNTER → 2020-02-26 10:54 | Outpatient (CLI) | payer MEDICAID, SELFPAY ==
[2019-08-19 14:04] VITALS: BMI 45.3
[2020-02-26 12:27] LABS: Absolute Lymphocyte Count 1.93 X10^3/uL (0.83-4.51); Absolute Neutrophil Count 4.8 X10^3/uL (2.0-7.7); Basophil# 0.04 X10^3/uL; Basophil% 0.5 % (0-1); Eosinophil# 0.22 X10^3/uL; Hematocrit 38.2 % (37-47); Hemoglobin 11.7 g/dL (12.0-15.0); Lymphocyte # 1.93 X10^3/ul (4.0); Mean Corp Hgb Conc 30.6 g/dL (32-36); Mean Corpuscular Hgb 24.5 pg (27.0-32.0); Mean Corpuscular Volume 79.9 fL (81-99); Mean Platelet Vol. 9.5 fl (6.2-12.0); Monocyte% 5.4 % (0-10); NRBC Flagged by Analyzer 0 % (0-5); Neutrophil # 4.82 X10^3/uL (2.7-7.7); Neutrophil % 64.8 % (47-70); Platelet Count 316 K/mm3 (150-450); RBC Distribution Width CV 15.4 % (11.6-14.6); RBC Distribution Width SD 44.4 fl (35.1-43.9); Red Blood Count 4.78 M/mm3 (4.2-5.4); White Blood Count 7.4 K/mm3 (4.4-11.0)
[2020-02-26 13:14] LABS: Vitamin B12 661 pg/mL (211-911); Vitamin D,25 Hydroxy 36.5 ng/mL
[2020-02-26 13:20] LABS: ALB/GLOB Ratio 0.8 RATIO (0.9-2.4); AST(SGOT) 20 U/L (15-37); Alanine Aminotransfer ALT/SGPT 37 U/L (13-56); Albumin, Serum 3.4 g/dL (3.2-5.0); Alkaline Phosphatase 91 U/L (45-117); Anion Gap 4 (5-15); BUN 10 mg/dL (7-18); BUN/Creat Ratio 14.6 RATIO (10-20); Calcium,Total 9.1 mg/dL (8.5-10.1); Chloride 109 mmol/L (98-107); Cholesterol 124 mg/dL (200); Creatinine, Serum 0.68 mg/dL (0.55-1.02); EST Glomerular Filtration Rate 111 mL/min (>60); Est Glom Filt Rate - Afr Amer 134 mL/min (>60); Ferritin 47 ng/mL (8-252); Globulin 4.3 g/dL (2.2-4.2); Glucose 90 mg/dL (74-106); High Density Lipoprotein 32 mg/dL; Potassium 4.3 mmol/L (3.5-5.1); Protein, Total 7.7 g/dL (6.4-8.2); Sodium Level 139 mmol/L (136-145); Thyroid Stim Hormone (TSH) 2.87 uIU/mL (0.358-3.74); Triglycerides 118 mg/dL; Very Low Density Lipoprotein 24 mg/dL (5-40)
== END ==
PROVIDERS: PCP Family Medicine; Referring Provider Family Medicine; Visit Provider Family Medicine
DX: E61.1 Iron deficiency (principal); R53.83 Other fatigue; Z13.220 Encounter for screening for lipoid disorders
CPT/HCPCS: 36415; 80053; 80061; 82306; 82607; 82728; 82746; 84443; 85025

== ENCOUNTER 2021-04-13 19:24 | Emergency (ER) | payer MEDICAID, SELFPAY ==
[2021-04-13 19:24] VITALS: BP 155/115; PULSE 95; RESP 18; TEMP 36.6; O2SAT 99; BMI 42.5
--- NOTE | 2021-04-13 20:20 | EDS_ITS ---
HPI History of Present Illness Chief Complaint: Fatigue Detail of Chief Complaint: Vomiting and abdominal pain x3 days Informant: patient Narrative Narrative: Patient presents to the emergency department stating that she was diagnosed with Covid 4 days ago. Patient's had symptoms of Covid for 6 days. Patient states her and her 2-year-old also have Covid. She states that she really has no respiratory symptoms. She complains of a headache. She describes left upper quadrant abdominal pain and states that she cannot keep anything down for the last 3 days. She has had frequent vomiting and nausea. She denies diarrhea. She denies urinary symptoms. Prior similar symptoms: No PFSH PFSH Medical History (Updated 04/13/21 @ 22:[address] Alexy Rodas, DO) Asthma Iron deficiency Obesity Home Medications albuterol sulfate 1 - 2 puff INHALATION Q4H PRN PRN #1 inhaler 12/15/13 [Rx Last Taken 07/03/19 10:00] levonorgestrel 20 mcg/24 hours (6 yrs) 52 mg intrauterine device 1 insert INTRAUTERINE ONCE #1 ea 08/19/19 [Clinic Last Taken Unknown] albuterol sulfate 1.25 mg/3 mL solution for nebulization 1.25 mg INHALATION Q4H 06/08/20 [History Last Taken Unknown] ondansetron 4 mg PO Q8H PRN PRN #10 tab 04/13/21 [Rx Last Taken Unknown] venlafaxine 75 mg PO DAILY 04/13/21 [History Last Taken Unknown] Allergy/AdvReac Type Severity Reaction Status Date / Time [place] And Derivatives Allergy Swelling Verified 04/13/21 21:00 morphine Allergy Other Verified 04/13/21 21:00 Family History Grandmother Diabetes Surgical History H/O hernia repair History of appendectomy Social History (Updated 06/08/20 @ 12:28 by Dulce Anaya) Smoking Status: Never smoker alcohol intake: never substance use type: does not use caffeine: Yes what type of physical activity do you participate in: walking seatbelt use: always do you feel safe at home: Yes additional social history: [employer] Patient works at [employer] in [employer] [facility] ROS ED Constitutional Constitutional ED: Reports systems reviewed and no addt'l complaints, except as documented; Denies body ache(s), change in weight or chills Eyes Eyes: Denies acute decrease in peripheral vision, change in vision, double vision or loss of vision ENT ENT ED: Reports none; Denies ear pain, lip swelling, loss taste/smell, neck pain, otalgia or sore throat Cardiovascular Cardiovascular: Reports none; Denies abdominal pain, chest pain with activity, leg edema, lightheadedness, palpitations, rapid heart rate or syncope Respiratory/Chest Respiratory/Chest: Reports none; Denies change in mental status, dry cough, dyspnea, hemoptysis, shortness of breath at rest or shortness of breath with exertion Gastrointestinal Gastrointestinal: Reports none, abdominal pain, nausea and vomiting; Denies change in stool character, diarrhea, hematemesis, hematochezia, melena or rectal bleeding Genitourinary Genitourinary ED: Reports none; Denies abdominal discomfort, anuria, dysuria, genital pain or polyuria Musculoskeletal Musculoskeletal: Reports none; Denies arthralgias, back pain, difficulty walking, extremity pain, muscle weakness or myalgias Integumentary Reports none; Denies abscess or rash Neurologic Neurologic: Reports none and headache(s); Denies abnormal gait, confusion, focal weakness, frequent falls, loss of vision, numbness, paresthesias, radicular pain, vertigo or weakness Psychiatric Psychiatric: Reports systems reviewed and no addt'l complaints, except as documented and none; Denies behavioral changes, confusion, difficulty concentrating, hallucinations, suicidal ideation, tactile hallucinations or visual hallucinations Endocrine Endocrinology: Denies none, cold intolerance, excessive sweating, fatigue or heat intolerance Hematologic/Lymphatic Hematologic/Lymphatic: Reports none; Denies anemia, easy bleeding or easy bruising Allergic/Immunologic Allergic/Immunologic ED: Denies as per HPI, none, lip swelling, mouth swelling, throat swelling, tongue swelling or hives EXAM Physical Exam Const Vital Signs: 04/13/21 19:24 04/13/21 20:58 Temperature 97.8 F Temperature Source Temporal Pulse Rate 95 Respiratory Rate 18 Respiratory Effort Normal Non-Labored Respiratory Pattern Normal Blood Pressure 155/115 H Blood Pressure Mean 128 Pulse Ox 99 Oxygen Delivery Method Room Air Positive well nourished and well developed General Appearance ED: well developed and NAD HEENT Reports TM's clear and moist mucous membranes normocephalic and atraumatic; Negative for trauma or tenderness Tympanic Membrane ED: Yes TM's clear Eyes PERRL and EOMs intact bilaterally General Eye ED: Negative for pale conjunctiva or scleral icterus Neck no lymphadenopathy, supple and no JVD General: Negative for tenderness Chest Wall inspection of chest normal and palpation of chest normal Chest: Negative for tenderness Resp normal respiratory effort and clear to auscultation bilaterally Effort and Inspection: Negative for respiratory distress or pain with movement Auscultation: Negative for rhonchi, wheezes or diminished lung sounds Cardio regular rate, regular rhythm, S1 normal heart sound, S2 normal heart sound and no murmurs Peripheral Pulses: pulses 2+ throughout GI normal to inspection, nondistended, normoactive bowel sounds, soft to palpation, non-distended and no masses GI Narrative: Patient has tenderness palpation over left upper quadrant with some guarding. There is no rebound, rigidity, or peritoneal signs. Back/Spine no CVA tenderness and no thoracic nor lumbar tenderness Extremity normal to inspection General Extremety ED: Negative for edema General Extremity: Negative for edema Neuro oriented x3, CN's II-XII intact bilaterally, no sensory deficits noted and gait normal Sensorium / Orientation: awake, alert, oriented to person, oriented to place and oriented to time Motor Exam: strength 5/5 throughout and strength abnormal Psych mental status grossly normal Skin no rashes or lesions noted and no wounds MDM MDM MDM Narrative Medical decision making narrative: IV line established on arrival. Patient was given normal saline. Patient was given Zofran 4 mg IV. Patient was given Dilaudid 1 mg IV and she had good pain relief. Patient continues to complain of nausea and was given Reglan 5 mg IV as well as Benadryl 25 mg IV. On repeat examination at 22:50 her abdomen exam is benign and she has no tenderness over the right upper quadrant. There is no rebound, rigidity, or peritoneal signs. Patient will be discharged home with a prescription for Zofran. She is advised to push fluids. She is to return if increasing shortness of breath or condition should worsen anyway. Patient will be referred for monoclonal antibody infusion. Lab Data Attestation: I reviewed the patient's lab results. Labs: Laboratory Results - last 24 hr 04/13/21 04/13/21 04/13/21 20:50 20:50 20:50 WBC 7.6 RBC 5.27 Hgb 13.3 Hct 41.7 MCV 79.1 L MCH 25.2 L MCHC 31.9 L RDW Std Deviation 42.4 RDW Coeff of Wanda 14.7 H Plt Count 231 MPV 9.5 Immature Gran % (Auto) 0.300 Neut % (Auto) 71.9 H Lymph % (Auto) 22.8 [place] % (Auto) 4.6 Eos % (Auto) 0.3 Baso % (Auto) 0.1 Absolute Neuts (auto) 5.4 Absolute Lymphs (auto) 1.72 Nucleated RBC % 0 Sodium 138 Potassium 3.5 Chloride 105 Carbon Dioxide 22.0 Anion Gap 11 BUN 10 Creatinine 0.66 Estim Creat Clear Calc 116.23 Est GFR (MDRD) Af Amer 139 Est GFR (MDRD) Non-Af 115 BUN/Creatinine Ratio 15.2 Glucose 80 Lactic Acid 1.3 Calcium 8.8 Total Bilirubin 0.40 AST 36 ALT 65 H Alkaline Phosphatase 74 Total Protein 8.3 H Albumin 3.6 Globulin 4.7 H Albumin/Globulin Ratio 0.8 L Lipase 108 Urine Color Urine Clarity Urine pH Ur Specific [place] Urine Protein Urine Glucose (UA) Urine Ketones Urine Occult Blood Urine Nitrite Urine Bilirubin Urine Urobilinogen Ur Leukocyte Esterase Urine RBC Urine WBC Ur Squamous Epith Cells Urine Bacteria Urine Mucus 04/13/21 21:32 WBC RBC Hgb Hct MCV MCH MCHC RDW Std Deviation RDW Coeff of [place]anda Plt Count MPV Immature Gran % (Auto) Neut % (Auto) Lymph % (Auto) [place] % (Auto) Eos % (Auto) Baso % (Auto) Absolute Neuts (auto) Absolute Lymphs (auto) Nucleated RBC % Sodium Potassium Chloride Carbon Dioxide Anion Gap BUN Creatinine Estim Creat Clear Calc Est GFR (MDRD) Af Amer Est GFR (MDRD) Non-Af BUN/Creatinine Ratio Glucose Lactic Acid Calcium Total Bilirubin AST ALT Alkaline Phosphatase Total Protein Albumin Globulin Albumin/Globulin Ratio Lipase Urine Color Yellow Urine Clarity Sl. Cloudy Urine pH 6.0 Ur Specific [place] 1.020 Urine Protein 30 H Urine Glucose (UA) Normal Urine Ketones 150 A* Urine Occult Blood 10 H Urine Nitrite Negative Urine Bilirubin 1 H Urine Urobilinogen 4 H Ur Leukocyte Esterase 500 H Urine RBC 0 SEEN Urine WBC 5-10 SEEN Ur Squamous Epith Cells 5-10 SEEN Urine Bacteria 1+ Urine Mucus 0 SEEN Discharge Plan Triage Chief Complaint: Fatigue ED Provider: Alexy Rodas Dx/Rx/DC Orders Clinical Impression: Abdominal pain, COVID-19 Instructions: ED Abdominal Pain Unkn Cause Fem, Caring for Someone Who Has COVID-19 Prescriptions: New ondansetron [ondansetron] 4 MG tablet 4 mg PO Q8H PRN PRN (Reason: Nausea) Qty: 10 RF: 0 No Action levonorgestrel 20 mcg/24 hours (5 yrs) 52 mg intrauterine device 1 insert intrauterine ONCE Qty: 1 RF: 0 albuterol sulfate 1.25 mg/3 mL solution for nebulization 1.25 mg INHALATION Q4H RF: 0 albuterol sulfate 1 INHALER inhaler 1 - 2 puff inhalation Q4H PRN PRN (Reason: Wheezing) Qty: 1 RF: 0 venlafaxine 75 mg capsule,extended release 24hr 75 mg PO DAILY RF: 0 Other Ambulatory Orders: COVID Outpatient Monoclonal Antibody Referral (Routine) Timeframe: 1 Day Facility: [facility] - Location: [facility] Ordered By: Dr. Alexy Rodas Primary Care Provider: Humberto Rodriguez Referrals: Humberto Rodriguez MD [Primary Care Provider] - 3-5 Days Disposition Disposition: Home, Self Care
[2021-04-13] MEDS: Ondansetron 4 MG/2 ML Vial IV (20:49)
[2021-04-13] MEDS: HYDROmorphone 1 MG/ML Syringe IV (20:49)
[2021-04-13] MEDS: 0.9% Normal Saline 1,000 ML 125 ML IV (20:50)
[2021-04-13 21:01] LABS: Absolute Lymphocyte Count 1.72 X10^3/uL (0.83-4.51); Absolute Neutrophil Count 5.4 X10^3/uL (2.0-7.7); Basophil# 0.01 X10^3/uL; Basophil% 0.1 % (0-1); Eosinophil# 0.02 X10^3/uL; Eosinophils% 0.3 % (0-5); Hematocrit 41.7 % (37-47); Hemoglobin 13.3 g/dL (12.0-15.0); Lymphocyte # 1.72 X10^3/ul (0.83-4.51); Lymphocyte % 22.8 % (19-41); Mean Corp Hgb Conc 31.9 g/dL (32-36); Mean Corpuscular Hgb 25.2 pg (27.0-32.0); Mean Corpuscular Volume 79.1 fL (81-99); Mean Platelet Vol. 9.5 fl (6.2-12.0); Monocyte# 0.35 X10^3/uL; Monocyte% 4.6 % (0-10); NRBC Flagged by Analyzer 0 % (0-5); Neutrophil # 5.43 X10^3/uL (2.7-7.7); Neutrophil % 71.9 % (47-70); Platelet Count 231 K/mm3 (150-450); RBC Distribution Width CV 14.7 % (11.6-14.6); RBC Distribution Width SD 42.4 fl (35.1-43.9); Red Blood Count 5.27 M/mm3 (4.2-5.4); White Blood Count 7.6 K/mm3 (4.4-11.0)
[2021-04-13 21:24] LABS: ALB/GLOB Ratio 0.8 RATIO (0.9-2.4); AST(SGOT) 36 U/L (15-37); Alanine Aminotransfer ALT/SGPT 65 U/L (13-56); Albumin, Serum 3.6 g/dL (3.2-5.0); Alkaline Phosphatase 74 U/L (45-117); Anion Gap 11 (5-15); BUN 10 mg/dL (7-18); BUN/Creat Ratio 15.2 RATIO (10-20); Calcium,Total 8.8 mg/dL (8.5-10.1); Chloride 105 mmol/L (98-107); Creatinine, Serum 0.66 mg/dL (0.55-1.02); EST Glomerular Filtration Rate 115 mL/min (>60); Est Glom Filt Rate - Afr Amer 139 mL/min (>60); Estimated Creatinine Clearance 116.23 ml/min; Globulin 4.7 g/dL (2.2-4.2); Glucose 80 mg/dL (74-106); Lactic Acid 1.3 mmol/L (0.4-1.9); Lipase 108 U/L (73-393); Potassium 3.5 mmol/L (3.5-5.1); Protein, Total 8.3 g/dL (6.4-8.2); Sodium Level 138 mmol/L (136-145)
[2021-04-13 21:39] LABS: Mucous, Urine 0 SEEN /hpf (<or=2+); Red Blood Cells-Urine 0 SEEN /hpf (0-5)
[2021-04-13 21:44] LABS: Color, Urine Yellow (Yellow); Glucose, Dipstick Normal (Normal); Leukocyte Esterase-Dipstick 500 /ul (Negative); Nitrite-Dipstick Negative (Negative); Occult Blood-Urine 10 /ul (Negative); Protein-Dipstick 30 mg/dl (Negative); Urine Clarity Sl. Cloudy (Clear); Urine Urobilinogen 4 mg/dl (Normal)
[2021-04-13 21:52] LABS: Urine Bilirubin Dipstick 1 mg/dL (Negative)
[2021-04-13 21:54] LABS: Ketone-Dipstick 150 mg/dl (Negative); Squamous Epithelial Cells - UA 5-10 SEEN /hpf (5-10)
[2021-04-13 21:57] LABS: Bacteria 1+ /hpf (None Seen); White Blood Cells 5-10 SEEN /hpf (0-5)
[2021-04-13] MEDS: DiphenhydrAMINE 50 MG/ML Syringe 25 MG IV (23:22)
[2021-04-13] MEDS: Metoclopramide 10 MG/2 ML Vial 5 MG IV (23:22)
== END 2021-04-13 23:43 | disposition home or self-care (01) ==
PROVIDERS: Emergency Provider Emergency Medicine; PCP Family Medicine
DX: U07.1 COVID-19 (principal); R10.12 Left upper quadrant pain; J45.909 Unspecified asthma, uncomplicated; Z79.899 Other long term (current) drug therapy; Z79.3 Long term (current) use of hormonal contraceptives
CPT/HCPCS: 80053; 81001; 83605; 83690; 85025; 96374; 96375; 99282; J7030; A4216; J2405

== ENCOUNTER 2022-07-10 07:44 | Emergency (ER) | payer MEDICAID, SELFPAY ==
[2022-07-10 07:45] VITALS: BP 174/130; PULSE 99; RESP 22; TEMP 36.2; O2SAT 100; BMI 42.4
--- NOTE | 2022-07-10 08:16 | EDS_ITS ---
HPI History of Present Illness Chief Complaint: Back Narrative Narrative: 27-year-old female here for back pain note she heard a pop while getting out of bed. Denies any other trauma. Patient denies any saddle anesthesia, urinary tension, bowel or bladder incontinence, lower extremity weakness, fever or IV drug use, no recent spinal manipulation or surgery, no recent urinary catheterization. [facility] Medical History (Updated 04/21/21 @ 00:01 by Juan Carlos Theodore) Asthma Iron deficiency Obesity Home Medications albuterol sulfate 90 mcg/actuation aerosol inhaler 1 - 2 puff inhalation Q4H PRN PRN Wheezing ##1 12/15/13 [Rx Last Taken 07/03/19 10:00] levonorgestrel 20 mcg/24 hours (8 yrs) 52 mg intrauterine device 1 insert intrauterine ONCE #1 ea 08/19/19 [Clinic Last Taken Unknown] albuterol sulfate 1.25 mg/3 mL solution for nebulization 1.25 mg inhalation Q4H 06/08/20 [History Last Taken Unknown] ondansetron 4 mg disintegrating tablet 4 mg PO Q8H PRN PRN Nausea #10 tabs 04/13/21 [Rx Last Taken Unknown] venlafaxine 75 mg capsule,extended release 24 hr 75 mg PO DAILY 04/13/21 [History Last Taken Unknown] ibuprofen 200 mg tablet 200 mg PO Q6H PRN back pain #30 tabs 07/10/22 [Rx Last Taken Unknown] prednisone 50 mg tablet 50 mg PO DAILY 5 days #5 tabs 07/10/22 [Rx Last Taken Unknown] Allergy/AdvReac Type Severity Reaction Status Date / Time [place] And Derivatives Allergy Swelling Verified 07/10/22 07:46 morphine Allergy Other Verified 07/10/22 07:46 Family History Grandmother Diabetes Surgical History H/O hernia repair History of appendectomy Social History (Updated 06/08/20 @ 12:28 by Dulce Anaya) Smoking Status: Current some day smoker tobacco type: cigarettes alcohol intake: never substance use type: does not use caffeine: Yes what type of physical activity do you participate in: walking seatbelt use: always do you feel safe at home: Yes additional social history: [employer] Patient works at [employer] in [employer] ROS ROS ED ROS Narrative Constitutional: Denies fever HEENT: Denies sore throat Neck: Denies neck pain Cardiovascular: Denies chest pain, syncope Respiratory: Denies shortness of breath GI: Denies nausea vomiting or abdominal pain : Denies changes in urinary habits Musculoskeletal: Endorses back pain Neurologic: Denies numbness weakness or loss of sensation Skin denies rash EXAM Physical Exam Narrative Exam Narrative: Nursing triage notes reviewed, Vital signs reviewed Constitutional: please see mdm HENT: MMM Eyes: Pupils equal round and reactive to light, Extraocular muscles intact Neck: No stridor, no JVD, full neck ROM Lungs: Clear to auscultation, No wheezing or rales. No increased work of breathing, no conversational dyspnea, no accessory muscle use, no nasal flaring. No respiratory distress noted Heart: Regular rate and rhythm, No murmurs, No rubs and No gallops, 2+ distal pulses (radial, femoral, posterior tibial) in all extremities Abdomen: Soft, there is no tenderness, rigidity, rebound or guarding, no obvious peritoneal signs, no palpable pulsatile abdominal masses, no auscultated abdominal bruit : No CVAT Extremities: No edema Neuro: No focal neurological deficits, intact sensation L1-S1 dermatomal distributions. Intact 5/5 strength in hip flexion (T12-L3). Knee extension (L2-L4). Ankle dorsiflexion (L4-L5). Ankle plantar flexion (S1). Great toe extension (L5). 2+ patellar and Achilles DTRs. Skin: No rash or lesions noted Const Vital Signs: 07/10/22 07:45 Temperature 97.1 F L Temperature Source Temporal Pulse Rate 99 Respiratory Rate 22 H Blood Pressure 174/130 H Blood Pressure Mean 144 Pulse Ox 100 Oxygen Delivery Method Room Air [facility] Narrative Medical decision making narrative: Chief Complaint: Back pain External records reviewed: No recent events imaging of the axial skeleton I considered: Space-occupying lesion of the spine (mass, epidural hematoma, or epidural abscess), fracture/dislocation, herniated disc, musculoskeletal back pain. Consider obtaining MRI to rule out space-occupying lesion however thought this was not needed given the patient's lack of red flag symptoms, neurologic deficit s. No trauma to suggest fracture dislocation as such I did not obtain a CT scan or x-ray of the axial skeleton. She may be some from a herniated disc or muscle skeletal back pain otherwise does not require any acute surgery will treat inflammation given her PCP follow-up. The patient presented complaining of back pain. There was no history of recent fall or trauma. There was no evidence to support genitourinary etiology. There is also no evidence to suggest vascular pathology such as AAA dissection. No fevers or other evidence to suspect infectious processes, abscess, osteomyelitis etc. The patient?s neurological exam is normal with normal motor and sensory. There is no saddle paresthesias reported and no bowel or bladder incontinence or retention. I suspect the pain is mechanical in nature. Clinical suspicion, plan of care and management was discussed with the patient. The patient was instructed to follow up with their health care provider. The patient was also instructed to return if the pain worsened, changed, or developed weakness or bowel or bladder trouble. The patient agreed with plan. I completed a structured, evidence-based clinical evaluation to screen for acute non-traumatic spinal emergencies. The patient has a normal detailed neurologic exam and a low red flag score. The evidence indicates that the patient is very low risk for an acute spinal emergency and this is consistent with my clinical intuition. The risk of further workup is higher than the likelihood of the patient having a spinal epidural abscess or other dangerous emergency spinal condition. It is, therefore, in the patient?s best interest not to do additional emergent testing at this time. Shared Decision-Making I have discussed with the patient my clinical impression and the result of an evidence-based clinical evaluation to screen for spinal epidural abscess and other spinal emergencies, as well as the risk of further testing and hospitalization. The evidence shows that the risk for an acute spinal emergency is less than 1%. Although the risk of an acute spinal emergency has not been completely eliminated, the risks of further testing likely exceed any potential benefit, and the patient agrees with not pursuing further emergent evaluation for causes of back pain at this time. Factors affecting care: History of obesity Social determinants of health: Poor medical knowledge, limited access to care Consults: None Treatment and Re-Evaluation Narrative: Repeat neurologic exam remains benign the patient is appropriate for discharge home Discharge Plan Triage Chief Complaint: Back ED Provider: Ryne Munguia Dx/Rx/DC Orders Instructions: ED Back Spasm, No Trauma Prescriptions: New prednisone 50 mg tablet 50 mg PO DAILY 5 Days Qty: 5 0RF ibuprofen 200 mg tablet 200 mg PO Q6H PRN (Reason: back pain) Qty: 30 0RF No Action levonorgestrel 20 mcg/24 hours (5 yrs) 52 mg intrauterine device 1 insert intrauterine ONCE Qty: 1 0RF albuterol sulfate 1.25 mg/3 mL solution for nebulization 1.25 mg INHALATION Q4H albuterol sulfate 1 INHALER inhaler 1 - 2 puff inhalation Q4H PRN PRN (Reason: Wheezing) Qty: 1 0RF venlafaxine 75 mg capsule,extended release 24hr 75 mg PO DAILY Label Comments: take 1 capsule by mouth once daily ondansetron [ondansetron] 4 MG tablet 4 mg PO Q8H PRN PRN (Reason: Nausea) Qty: 10 0RF Stand Alone Forms: ED Work / School Excuse, Work / School Excuse Primary Care Provider: Humberto Rodriguez Referrals: Humberto Rodriguez MD [Primary Care Provider] - Activity Restrictions/Additional Instructions: Please return if you have trouble urinating, develop loss of sensation or function of your lower extremities, if you develop bowel or bladder incontinence. Please take medicine as prescribed. Please follow your primary care physician for outpatient reevaluation and possible PT/OT evaluation. Disposition Disposition: Home, Self Care Discharge Date/Time: 07/10/22 09:28
[2022-07-10] MEDS: predniSONE 20 MG Tablet 60 MG PO (09:23)
[2022-07-10] MEDS: Ibuprofen 200 MG Tablet 400 MG PO (09:23)
[2022-07-10] MEDS: oxyCODONE 5 MG Tablet PO (09:23)
[2022-07-10] MEDS: Ondansetron ODT 4 MG Tablet PO (09:23)
== END 2022-07-10 09:28 | disposition home or self-care (01) ==
PROVIDERS: Emergency Provider Emergency Medicine; PCP Family Medicine; Visit Provider Emergency Medicine
DX: M54.9 Dorsalgia, unspecified (principal); Z68.41 Body mass index [BMI] 40.0-44.9, adult; E66.9 Obesity, unspecified; F17.210 Nicotine dependence, cigarettes, uncomplicated
CPT/HCPCS: 99283

== ENCOUNTER → 2022-08-14 | Outpatient (CLI) | payer MEDICAID, SELFPAY ==
[2022-08-22 13:34] LABS: HPV APTIMA, High Risk Negative (Negative)
== END | disposition home or self-care (01) ==
LOC: LABSPEC 15:02
PROVIDERS: Referring Provider Registered Nurse; Visit Provider Registered Nurse
DX: Z12.4 Encounter for screening for malignant neoplasm of cervix (principal)
CPT/HCPCS: 87624; 88175; G0145

== ENCOUNTER → 2022-08-23 | Outpatient (CLI) | payer MEDICAID, SELFPAY ==
--- NOTE | 2022-08-23 16:03 | US_ITS ---
INDICATION: iud placement check EXAMINATION: Ultrasound US Pelvis Non OB Complete With Transvaginal Imaging TECHNIQUE: Transabdominal and transvaginal pelvic ultrasound was performed. Grayscale, spectral waveform, and color flow Doppler evaluation of the adnexa. COMPARISON: None. LMP: Unknown. No LMP per patient. FINDINGS: UTERUS: Length 7.1 cm. Normal configuration. ENDOMETRIUM: Not thickened. Intrauterine device appears well positioned in the endometrial canal. Nabothian cyst in the cervix. OVARIES: Right ovary: 3.1 x 2.4 x 2.3 cm. Simple cyst 2 x 1.6 x 1.8 cm. Vascular flow demonstrated. No findings to suggest ovarian torsion. Left ovary: Not visualized. FREE FLUID: None. US/Pelvic (Non ) IMPRESSION: IUD in Place. Right ovarian 2 cm cyst/follicle Nonvisualized left ovary. Please note that ectopic is not excluded by this study. Electronically Signed: Chiquis Wong MD at 4:08 EST ,
--- NOTE | 2022-08-23 16:03 | US_ITS ---
INDICATION: iud placement check EXAMINATION: Ultrasound US Pelvis Non OB Complete With Transvaginal Imaging TECHNIQUE: Transabdominal and transvaginal pelvic ultrasound was performed. Grayscale, spectral waveform, and color flow Doppler evaluation of the adnexa. COMPARISON: None. LMP: Unknown. No LMP per patient. FINDINGS: UTERUS: Length 7.1 cm. Normal configuration. ENDOMETRIUM: Not thickened. Intrauterine device appears well positioned in the endometrial canal. Nabothian cyst in the cervix. OVARIES: Right ovary: 3.1 x 2.4 x 2.3 cm. Simple cyst 2 x 1.6 x 1.8 cm. Vascular flow demonstrated. No findings to suggest ovarian torsion. Left ovary: Not visualized. FREE FLUID: None. US/Transvaginal Non- IMPRESSION: IUD in Place. Right ovarian 2 cm cyst/follicle Nonvisualized left ovary. Please note that ectopic is not excluded by this study. Electronically Signed: Chiquis Wong MD at 4:08 EST ,
== END | disposition home or self-care (01) ==
LOC: US 16:02
PROVIDERS: Referring Provider Registered Nurse; Visit Provider Registered Nurse
DX: Z30.431 Encounter for routine checking of intrauterine contraceptive device (principal)
CPT/HCPCS: 76830; 76856

== ENCOUNTER → 2022-10-06 | Outpatient (CLI) | payer MEDICAID, SELFPAY ==
--- NOTE | 2022-10-06 12:49 | US_ITS ---
EXAM: US PELVIS TRANSABDOMINAL AND TRANSVAGINAL, COMPLETE CLINICAL INDICATION: encounter for IUD placement TECHNIQUE: Transabdominal and transvaginal pelvic ultrasound was performed with grayscale and color Doppler imaging. Transvaginal imaging was used for better evaluation of the endometrium and adnexa. This report was created using [employer] report generation technology. COMPARISON: None. FINDINGS: UTERUS/CERVIX: Endometrial complex measures 6 mm in thickness. Anteverted uterus measuring 7.8 x 4.5 x 2.8 cm. [address]UD [address] in place. Cervical nabothian cysts are identified. No uterine fibroids. RIGHT OVARY: Right ovarian measures 2.0 x 1.6 x 1.7 cm with normal blood flow to it. No ovarian or adnexal masses. LEFT OVARY: Left ovary not visualized. FREE FLUID: No free fluid in the pelvic cul-de-sac. BLADDER: Bladder is unremarkable. US/Pelvic (Non ) IMPRESSION: IUD in place. Electronically Signed: Kev Gonzalez MD at 2:50 EDT ,
== END | disposition home or self-care (01) ==
LOC: US 12:48
PROVIDERS: Referring Provider Registered Nurse; Visit Provider Registered Nurse
DX: Z30.431 Encounter for routine checking of intrauterine contraceptive device (principal)
CPT/HCPCS: 76830; 76856

== ENCOUNTER 2024-05-19 23:08 | Emergency (ER) | payer SELFPAY ==
[2024-05-19 23:09] VITALS: BP 131/80; PULSE 108; RESP 16; TEMP 36.3; O2SAT 100; BMI 40.9
--- NOTE | 2024-05-19 23:14 | EX.ED.DYSGE1 ---
HPI History of Present Illness Chief Complaint: General Illness [facility] Medical History Asthma Cervical cancer screening Iron deficiency Obesity Home Medications ?Medication ?Instructions ?Recorded ?Last Taken ?Type albuterol sulfate 90 mcg/actuation 1 - 2 puff inhalation Q4H PRN PRN 12/15/13 07/03/19 10:00 Rx aerosol inhaler Wheezing ##1 levonorgestrel 1 insert intrauterine ONCE #1 ea 08/19/19 Unknown Clinic albuterol sulfate 1.25 mg/3 mL 1.25 mg inhalation Q4H 06/08/20 Unknown History solution for nebulization buspirone 10 mg tablet 10 mg PO BID 08/14/22 Unknown History imiquimod 5 % topical cream packet 1 applic topical .3xw #24 ea 08/14/22 Unknown Rx amoxicillin 875 mg-potassium 1 tab PO BID 7 days #14 tabs 05/20/24 Unknown Rx clavulanate 125 mg tablet metoclopramide HCl 5 mg tablet 5 mg PO Q8H PRN PRN nausea and 05/20/24 Unknown Rx (Reglan) vomiting #10 tabs Allergy/AdvReac Type Severity Reaction Status Date / Time Bartholomew And Derivatives Allergy Swelling Verified 05/19/24 23:09 morphine Allergy Other Verified 05/19/24 23:09 Family History Grandmother Diabetes Surgical History H/O hernia repair History of appendectomy Social History Smoking Status: Current some day smoker tobacco type: cigarettes alcohol intake: never substance use type: does not use caffeine: Yes what type of physical activity do you participate in: walking seatbelt use: always do you feel safe at home: Yes additional social history: [employer] Patient works at [employer] EXAM Physical Exam Const Vital Signs: 05/19/24 23:09 05/19/24 23:13 05/20/24 01:08 Temperature 97.4 F L Temperature Source Temporal Pulse Rate 108 H 83 Respiratory Rate 16 18 Respiratory Effort Normal Respiratory Pattern Normal Blood Pressure 131/80 H 90/66 Blood Pressure Mean 97 74 Pulse Ox 100 95 Oxygen Delivery Method Room Air [place] [facility] [place] Medical decision making narrative: HISTORY OF PRESENT ILLNESS: 29-year-old female presents with concern for mono. She states I was seen in urgent care this morning and they think have mono but they cannot test me until Sunday. She complains of nausea vomiting, fevers, indigestion, swollen lymph nodes and sore throat. The symptoms began on Sunday. 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 Notes her 4-year-old son is also in daycare/preschool he is often sick with viral URIs. She denies chest pain, denies syncope, denies focal weakness, denies abdominal pain or urinary complaints. She denies flank pain. REVIEW OF SYSTEMS: Pertinent positives: Nausea, vomiting, indigestion, lymphadenopathy and sore throat Pertinent negatives: As per HPI PHYSICAL EXAM: Nursing triage notes reviewed, Vital signs reviewed Constitutional: please see mdm HENT: MMM, bilateral tonsils are swollen and erythematous with exudates consistent with likely bacterial pharyngitis. There is no hot potato voice, dysphonia, trismus, pooling secretions, uvular deviation or submandibular edema. Eyes: Pupils equal round and reactive to light, Extraocular muscles intact Neck: No stridor, no JVD, full neck ROM, positive anterior cervical lymphadenopathy Lungs: Clear to auscultation, No wheezing or rales. No increased work of breathing, no conversational dyspnea, no accessory muscle use, no nasal flaring. No respiratory distress noted Heart: Regular rate and rhythm, No murmurs, No rubs and No gallops, 2+ distal pulses (radial, femoral, posterior tibial) in all extremities Abdomen: Soft, there is no tenderness, rigidity, rebound or guarding, no obvious peritoneal signs, no palpable pulsatile abdominal masses, no auscultated abdominal bruit : No CVAT Extremities: No edema Neuro: No focal neurological deficits, cranial nerves II through XII intact, 5/5 strength in all extremities. Intact sensation to light touch in all extremities, 2+ reflexes bilateral patella tendons. Normal gait. No ataxia. Skin: No rash or lesions noted MEDICAL DECISION MAKING: Chief Complaint: As per HPI External records reviewed: Reviewed prior records. Reviewed allergies, reviewed vital signs, reviewed medications Factors affecting care: Asthma Social determinants of health: none History obtained from others: none Consults: none [facility] Narrative: Patient was initially hemodynamically stable, afebrile and nontoxic-appearing. Exam with concern for bacterial pharyngitis otherwise unremarkable. Given the patient report of multiple episodes of nonbloody nonbilious vomitus I did obtain basic laboratory panel that included BMP and a CBC. Also obtained a urine test and a monotest give the patient specific pr intern for mono. I treated the patient initially with 4 mg IV Zofran. ALL IMAGES (IF OBTAINED) HAVE BEEN PERSONALLY REVIEWED AND INTERPRETED BY MYSELF. Urine test is negative CBC leukocytosis suggestive of system inflammation, no anemia or thrombocytopenia BMP without evidence of significant electrolyte abnormalities, no anion gap, no acute kidney injury. Monotest negative On reassessment patient able to tolerate p.o. in the form of Augmentin. She did this by having 1 episode of nausea and vomiting after Zofran. She received Reglan which improved her symptoms. The synthesis of the patient's history, physical exam, labs suggest likely bacterial pharyngitis. Will give Augmentin for home-going. Also Reglan for home-going given nausea and vomiting here. The patient and/or family, caregivers express understanding. The patient and/or family, caregivers agrees with the plan. Shared decision making: I will have a discussion with the patient and or visitors regarding risk/benefits of further testing or admission. They will be made aware of of the risk/benefits inherent in this decision they will be given the opportunity to voice understanding. Total critical care time today provided was at least 0 minutes. This excludes separately billable procedures. Critical care time (if documented) is secondary to the patient having high probability of clinically significant/life threatening deterioration in the patient's condition which required my urgent intervention. Impression: 1. Acute nausea and vomiting 2. Bacterial pharyngitis Dispo: Discharge home This note was generated with [employer] dictation software. It may contain incorrect words, spelling, and punctuation that were not noted in review of the chart prior to signing. Lab Data Labs: Laboratory Results - last 24 hr 05/19/24 05/20/24 23:32 00:11 WBC 11.2 H RBC 4.90 Hgb 12.9 Hct 40.4 MCV 82.4 MCH 26.3 L MCHC 31.9 L RDW Std Deviation 43.7 RDW Coeff of Wanda 14.4 Plt Count 258 MPV 9.7 Immature Gran % (Auto) 1.800 H Neut % (Auto) 79.9 H Lymph % (Auto) 11.8 L [place] % (Auto) 6.1 Eos % (Auto) 0.0 Baso % (Auto) 0.4 Absolute Neuts (auto) 8.9 H Absolute Lymphs (auto) 1.32 Nucleated RBC % 0 Sodium 136 Potassium 3.8 Chloride 106 Carbon Dioxide 21.0 Anion Gap 9 BUN 8 Creatinine 0.64 Estim Creat Clear Calc 161.41 Est GFR (MDRD) Af Amer 140 Est GFR (MDRD) Non-Af 115 BUN/Creatinine Ratio 12.4 Glucose 102 Calcium 8.7 Urine Test Negative Monoscreen Negative Discharge Plan Triage Chief Complaint: General Illness ED Provider: Ryne Munguia Dx/Rx/DC Orders Clinical Impression: Acute bacterial pharyngitis Instructions: When You Have a Sore Throat Prescriptions: New amoxicillin-pot clavulanate 875-125 mg tablet 1 tab PO BID 7 Days Qty: 14 0RF metoclopramide HCl [Reglan] 5 mg tablet 5 mg PO Q8H PRN PRN (Reason: nausea and vomiting) Qty: 10 0RF No Action levonorgestrel 20 mcg/24 hours (5 yrs) 52 mg intrauterine device 1 insert intrauterine ONCE Qty: 1 0RF albuterol sulfate 1.25 mg/3 mL solution for nebulization 1.25 mg INHALATION Q4H buspirone 10 mg tablet 10 mg PO BID Patient Comments: take 1 tablet by mouth twice a day imiquimod 5 % cream in packet 1 applic topical .3xw Qty: 24 5RF albuterol sulfate 1 INHALER inhaler 1 - 2 puff inhalation Q4H PRN PRN (Reason: Wheezing) Qty: 1 0RF Stand Alone Forms: ED Work / School Excuse Primary Care Provider: Care Physician,No Primary Referrals: Xavier Etienne MD [Med Staff - License Inspector] - Activity Restrictions/Additional Instructions: Thank you for trusting us with your care today! Your presentation is likely secondary to bacterial pharyngitis. This will require antimicrobial therapy. Please take Tylenol (2 pills, 650 mg), ibuprofen (2 pills, 400 mg) every 6 hours as needed for pain and fever control. Please take Reglan as needed for nausea vomiting Please take antibiotics until course complete. Please return to the emergency department if your symptoms change or worsen. Please follow with your primary care physician for further outpatient evaluation and management. Print Language: [place] Disposition Disposition: Home, Self Care
[2024-05-19] MEDS: Ondansetron 4 MG/2 ML Vial IV (23:32)
[2024-05-19 23:55] LABS: Anion Gap 9 (5-15); BUN 8 mg/dL (7-18); BUN/Creat Ratio 12.4 RATIO (10-20); Calcium,Total 8.7 mg/dL (8.5-10.1); Chloride 106 mmol/L (98-107); Creatinine, Serum 0.64 mg/dL (0.55-1.02); EST Glomerular Filtration Rate 115 mL/min (>60); Est Glom Filt Rate - Afr Amer 140 mL/min (>60); Estimated Creatinine Clearance 161.41 ml/min; Glucose 102 mg/dL (74-106); Potassium 3.8 mmol/L (3.5-5.1); Sodium Level 136 mmol/L (136-145)
[2024-05-19 23:57] LABS: Internal QC Validated? YES +Cl - CLEAR BKGD; Monotest Negative (Negative); Record Kit Lot#, Mono 13241033
[2024-05-20 00:07] LABS: Absolute Lymphocyte Count 1.32 X10^3/uL (0.83-4.51); Absolute Neutrophil Count 8.9 X10^3/uL (2.0-7.7); Basophil# 0.04 X10^3/uL; Basophil% 0.4 % (0-1); Hematocrit 40.4 % (37-47); Hemoglobin 12.9 g/dL (12.0-15.0); Lymphocyte # 1.32 X10^3/ul (0.83-4.51); Lymphocyte % 11.8 % (19-41); Mean Corp Hgb Conc 31.9 g/dL (32-36); Mean Corpuscular Hgb 26.3 pg (27.0-32.0); Mean Corpuscular Volume 82.4 fL (81-99); Mean Platelet Vol. 9.7 fl (6.2-12.0); Monocyte# 0.68 X10^3/uL; Monocyte% 6.1 % (0-10); NRBC Flagged by Analyzer 0 % (0-5); Neutrophil # 8.94 X10^3/uL (2.7-7.7); Neutrophil % 79.9 % (47-70); Platelet Count 258 K/mm3 (150-450); RBC Distribution Width CV 14.4 % (11.6-14.6); RBC Distribution Width SD 43.7 fl (35.1-43.9); White Blood Count 11.2 K/mm3 (4.4-11.0)
[2024-05-20 00:27] LABS: Internal QC Validated? YES +Cl - CLEAR BKGD; Pregnancy, Urine Negative Negative
[2024-05-20] MEDS: 0.9% Normal Saline (1000mL) 1,000 ML 999 ML IV (00:41)
[2024-05-20] MEDS: Metoclopramide 10 MG/2 ML Vial 5 MG IV (00:42)
[2024-05-20] MEDS: Ketorolac 15 MG/ML Vial IV (00:42)
[2024-05-20 01:08] VITALS: BP 90/66; PULSE 83; RESP 18; O2SAT 95
[2024-05-20] MEDS: Amox/Clavulanate 875 MG Tablet PO (01:16)
[2024-05-20 01:41] VITALS: BP 112/80; PULSE 65; RESP 16; TEMP 36.7; O2SAT 100
== END 2024-05-20 01:43 | disposition home or self-care (01) ==
PROVIDERS: Emergency Provider Emergency Medicine; Visit Provider Emergency Medicine
DX: J02.8 Acute pharyngitis due to other specified organisms (principal); R11.2 Nausea with vomiting, unspecified; F17.210 Nicotine dependence, cigarettes, uncomplicated; E66.9 Obesity, unspecified; J45.909 Unspecified asthma, uncomplicated
CPT/HCPCS: 80048; 81025; 85025; 86308; 96361; 96374; 96375; 99284; A4216; J2405